=== PATIENT | female | born 1945 | race Two or more races ===

== ENCOUNTER 2024-05-04 17:45 | Emergency (ER) | payer MEDICARE, SELFPAY ==
[2024-05-04 18:14] VITALS: BP 128/66; PULSE 76; RESP 18; TEMP 36.6; O2SAT 99; BMI 24.2
--- NOTE | 2024-05-04 18:36 | EKG_ITS ---
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
--- NOTE | 2024-05-04 18:44 | XR_ITS ---
Examination: PA chest single view Technique: Upright PA chest single view Exam date and time: 70,025 1847 hrs. Comparison August 21, 2022 Indications: Onset chest pain today. Findings: Obscuration of detail right and left cardiac contour is suspicious for pneumonia in the right middle lobe and lingular segment left upper lobe Normal heart size No pulmonary edema Impression: Recommend lateral chest follow-up to confirm pneumonia in the right middle lobe and lingular segment left upper lobe
--- NOTE | 2024-05-04 18:45 | EDRME_ITS ---
Rapid Medical Screening Exam [facility] Arrival date/time: 05/04/24 17:45 79F with history of afib presents to ED with 2 days of R shoulder, chest, and upper ab/lower rib pain. Patient denies fall/trauma, SOB, URI symptoms, and dizziness/weakness. Chief Complaint: Chest Pain Vital signs: Vital Signs Temperature 98 F 05/04/24 18:14 Pulse Rate 76 05/04/24 18:14 Respiratory Rate 18 05/04/24 18:14 Blood Pressure 128/66 05/04/24 18:14 Pulse Oximetry (%) 99 05/04/24 18:14 Oxygen Delivery Method Room Air 05/04/24 18:14
[2024-05-04 19:24] LABS: Basophils # (Auto) 0.1 Thou/mm3 (0.0-0.2); Basophils % (Auto) 1 % (0-2.5); Eosinophils # (Auto) 0.1 Thou/mm3 (0.0-0.5); Eosinophils % (Auto) 1 % (0-10); Hematocrit 42.6 % (36.0-46.0); Hemoglobin 14.5 g/dL (12.0-16.0); Immature Granulocytes % (Auto) 0 % (0-0); Immature Granulocytes Auto 0.02 Thou/mm3 (0.00-0.00); Lymphocytes # (Auto) 2.5 Thou/mm3 (1.0-4.8); Lymphocytes % (Auto) 26 % (10-50); Mean Corpuscular Hemoglobin 28.7 pg (25.0-35.0); Mean Corpuscular Volume 84 fL (80-100); Monocytes # (Auto) 0.4 Thou/mm3 (0.0-0.8); Monocytes % (Auto) 4 % (0-12); Neutrophils # (Auto) 6.4 Thou/mm3 (1.8-7.7); Neutrophils % (Auto) 68 % (37-80); Nucleated Red Blood Cell % 0 /100 WBC (0); Platelet Count 255 Thou/mm3 (140-440); RDW Standard Deviation 41.9 fL (36.4-46.3); Red Blood Count 5.05 Miln/mm3 (4.00-5.20); White Blood Count 9.4 Thou/mm3 (3.6-11.0)
[2024-05-04 19:41] LABS: Alanine Aminotransferase 15 U/L (10-49); Albumin/Globulin Ratio 1.9 (1.2-2.2); Alkaline Phosphatase 86 U/L (46-116); Anion Gap 9 (7-16); Aspartate Amino Transferase 19 U/L (0-34); BUN/Creatinine Ratio 16 Ratio (12-20); Bilirubin,Total 0.5 mg/dL (0.3-1.2); Blood Urea Nitrogen 13 mg/dL (9-23); Calcium 9.9 mg/dL (8.3-10.6); Calcium (Corrected) 9.9 mg/dL (8.5-10.1); Carbon Dioxide 27.3 mMol/L (20.0-31.0); Chloride 106 mMol/L (98-107); Creatinine (Component) 0.8 mg/dL (0.6-1.3); Estimated Creatinine Clearance 55.1 mL/min (>60); Globulin 2.6 gm/dL (2.3-3.5); Glucose 95 mg/dL (74-106); Lipase 34 U/L (12-53); Magnesium 2.1 mg/dL (1.6-2.6); Osmolality,Calculated 283 (275-295); Potassium 4.3 mMol/L (3.4-5.1); Sodium 142 mMol/L (136-145); Total Protein 7.6 gm/dL (5.7-8.2); Troponin I < 0.020 ng/mL (0.0-0.045); eGFR > 60 See Note
--- NOTE | 2024-05-04 20:02 | PD.EDADULT ---
ED General RME/HPI General Chief complaint: Chest Pain Stated complaint: CHEST PAIN Time Seen by Provider: 05/04/24 20:01 Arrival date/time: 05/04/24 17:45 RME / HPI RME / HPI narrative: Patient is a 79 years old female with PMH of Afib presented to the ED complaining of widespread chest and upper and lower rib pain since yesterday. She reports pain started yesterday morning and was constant since then. She denies any precipitating or alleviating factors. Pain does not get worse with deep breathing or chest palpation. She reports pain is mild and is dull in nature and mostly located in her ribs. Patient denies fall/trauma, SOB, URI symptoms, fever, chills, and dizziness/weakness. Earlier today patient had EKG done at different clinic and it was negative. Related Data Previous Rx's ?Medication ?Instructions ?Recorded levofloxacin 750 mg tablet 750 mg PO QDAY PNA 4 days #4 tabs 05/04/24 Allergies Allergy/AdvReac Type Severity Reaction Status Date / Time Penicillins Allergy Severe Rash Verified 08/21/22 11:02 clindamycin Allergy Unknown Verified 08/21/22 11:02 Review of Systems Review of Systems Systems Reviewed: All systems reviewed, normal except as documented ED Exam Narrative Physical exam: Gen: Well-developed and well-nourished female. HEENT: NCAT, PERRLA, EOMI, MMM, anicteric conjunctivae. CVS: normal S1 and S2. RRR. No M/R/G. Resp: CTA B/L. No rhonchi, rales, crackles or wheezing. Abd: soft, non-tender, non-distended. BS+ in all 4 quadrants. MSK: Good ROM in BUE & BLE. No edema or rash. Neuro: CN II-XII grossly intact. Strength 5/5 in BUE & BLE. Alert and oriented x3. Psych: appropriate mood and affect. Course Quality Measures none Orders Category Date Time Status EKG (ED ONLY) *Do not use* NOW Care 05/04/24 18:36 Completed CXRP [XR chest 1V portable] Stat Exams 05/04/24 20:03 Completed EKG (ED Only) Stat Exams 05/04/24 18:36 Draft XR chest 1V portable Stat Exams 05/04/24 18:44 Completed CBC Stat Lab 05/04/24 19:09 Completed Comprehensive Metabolic Panel Stat Lab 05/04/24 19:09 Completed Lipase Stat Lab 05/04/24 19:09 Completed Magnesium Stat Lab 05/04/24 19:09 Completed Troponin I Stat Lab 05/04/24 19:09 Completed Ibuprofen Tab [Motrin Tab] Med 05/04/24 20:40 Discontinued 400 mg PO X1 ONE Levofloxacin [Levaquin] Med 05/04/24 21:15 Discontinued 750 mg PO X1 ONE Vital Signs Vital signs: Vital Signs Temperature 98 F 05/04/24 18:14 Pulse Rate 76 05/04/24 18:14 Respiratory Rate 18 05/04/24 18:14 Blood Pressure 128/66 05/04/24 18:14 Pulse Oximetry (%) 99 05/04/24 18:14 Oxygen Delivery Method Room Air 05/04/24 18:14 Procedures -ED EKG Interpretation Sinus rhythm with IRBBB: Date of EK05/04/24 Time of EK:45 Rate: 70 Interpretation: Reviewed by me EKG Impression: Normal sinus rhythm and Bundle branch block MDM Patient data External records reviewed:: [facility] previous records Clinical information provided by:: patient and family Social determinants that could affect healthcare access:: none Patient has the following chronic illnesses:: Afib How is presenting disease/condition affected by chronic disease/condition?: uneffected by Evaluation data The following diagnostics were reviewed and interpreted by me:: lab results, radiology exam(s) and EKG tracing(s) Lab and/or radiology exams considered but not ordered:: CTA Interpretation Summary: Rt middle lobe PNA Medications Medications considered but not ordered:: Aspirin, statin Medication administrations:: Medication Administration History Discontinued Medications Ibuprofen (Ibuprofen Tab 400 Mg Tablet) 400 mg PO X1 ONE Stop: 05/04/24 20:41 Levofloxacin (Levofloxacin 250 Mg Tablet) 750 mg PO X1 ONE Stop: 05/04/24 21:16 Ibuprofen, Levofloxacin 750 mg Consultations Consultation(s) initiated? (list below): No Diagnosis Differential Diagnosis ED Complaint MDM: ACS, CAP, musculoskeletal pain Most likely diagnosis given after review of the tests above:: CAP Admission Indicated Admission indicated?: not indicated Explain why admission is indicated or not indicated:: Patient is clinically and hemodynamically stable. Labs are unremarkable. X-ray showed pneumonia right middle lobe. Patient is not septic. Does not meet criteria for admission per CURB-65. Admission Request Was there a request for admission?: No Disposition Plan Disposition Plan: Discharge Discharge Attestation Discharge Attestation: The patient and all family members were given an opportunity to ask questions and understood the discharge instructions. Discharge instructions specifically effects, indications for sooner follow up or return to the emergency department, and the expected course of current diagnosis. Patient condition: Stable Medical Decision Making MDM Narrative MDM Narrative: Patient is clinically and hemodynamically asymptomatic, labs did not show white cell count elevation. Patient can be treated outpatient with antibiotic orally and follow-up with PCP outpatient. Differential Diagnosis Differential Diagnosis: ACS, CAP, musculoskeletal pain Lab Data 05/04/24 19:09 05/04/24 19:09 Labs: Lab Results 05/04/24 Range/Units 19:09 WBC 9.4 (3.6-11.0) Thou/mm3 RBC 5.05 (4.00-5.20) Miln/mm3 Hgb 14.5 (12.0-16.0) g/dL Hct 42.6 (36.0-46.0) % MCV 84 (80-100) fL MCH 28.7 (25.0-35.0) pg MCHC 34.0 (31.0-37.0) g/dl RDW Std Deviation 41.9 (36.4-46.3) fL Plt Count 255 (140-440) Thou/mm3 Neut % (Auto) 68 (37-80) % Lymph % (Auto) 26 (10-50) % Wise % (Auto) 4 (0-12) % Eos % (Auto) 1 (0-10) % Baso % (Auto) 1 (0-2.5) % Neut # (Auto) 6.4 (1.8-7.7) Thou/mm3 Lymph # (Auto) 2.5 (1.0-4.8) Thou/mm3 Wise # (Auto) 0.4 (0.0-0.8) Thou/mm3 Eos # (Auto) 0.1 (0.0-0.5) Thou/mm3 Baso # (Auto) 0.1 (0.0-0.2) Thou/mm3 Immature Gran # (Auto) 0.02 H (0.00-0.00) Thou/mm3 Absolute Nucleated RBC 0.00 (0.00-0.00) Thou/mm3 Immature Gran % 0 (0-0) % Nucleated RBC % 0 (0) /100 WBC Sodium 142 (136-145) mMol/L Potassium 4.3 (3.4-5.1) mMol/L Chloride 106 (98-107) mMol/L Carbon Dioxide 27.3 (20.0-31.0) mMol/L Anion Gap 9 (7-16) BUN 13 (9-23) mg/dL Creatinine 0.8 (0.6-1.3) mg/dL Estim Creat Clear Calc 55.1 L (>60) mL/min eGFR > 60 (60 - ) See Note BUN/Creatinine Ratio 16 (12-20) Ratio Glucose 95 (74-106) mg/dL Calculated Osmolality 283 (275-295) Calcium 9.9 (8.3-10.6) mg/dL Corrected Calcium 9.9 (8.5-10.1) mg/dL Magnesium 2.1 (1.6-2.6) mg/dL Total Bilirubin 0.5 (0.3-1.2) mg/dL AST 19 (0-34) U/L ALT 15 (10-49) U/L Alkaline Phosphatase 86 (46-116) U/L Troponin I < 0.020 (0.0-0.045) ng/mL Total Protein 7.6 (5.7-8.2) gm/dL Albumin 5.0 H (3.4-4.8) gm/dL Globulin 2.6 (2.3-3.5) gm/dL Albumin/Globulin Ratio 1.9 (1.2-2.2) Lipase 34 (12-53) U/L Discharge Plan Plan Patient Disposition: HOME (Self Care) Patient condition on transfer: Stable Prescriptions/Referrals Prescriptions/Med Rec: New levofloxacin 750 mg tablet 750 mg PO QDAY 4 Days Qty: 4 0RF Referrals: Grzegorz Calle MD [Primary Care Provider] - In 1 week Problem List Clinical Impression: CAP (community acquired pneumonia) Patient/Caregiver Discharge Instructions Education Materials: ED Pneumonia (Adult) Additional Instructions: Recommendations after ER visit: -you were found to have pneumonia, start taking Levofloxacin 750 mg daily for 4 more day. -Follow up with PCP within 1 week. -return to the ED if symptoms recur or worsen. Print Language: Omani Stand Alone Forms: [employer] Award Info., Patient Portal Info Letter
--- NOTE | 2024-05-04 20:03 | XR_ITS ---
Examination: Lateral chest single view Technique: Lateral chest single view Exam date and time: May 14, 2024 at 1851 hrs. Indications: Difficulty breathing this week. Findings: Pneumonia in the right middle lobe No pulmonary edema Impression: Pneumonia in the right middle lobe
[2024-05-04] MEDS: LEVOFLOXACIN 250 MG TABLET 750 MG PO (21:56)
== END 2024-05-04 21:40 | disposition home or self-care (01) ==
PROVIDERS: Physician Assistant; Emergency Provider Emergency Medicine; PCP Internal Medicine
DX: J18.9 Pneumonia, unspecified organism (principal); I48.91 Unspecified atrial fibrillation; Z88.0 Allergy status to penicillin; Z88.1 Allergy status to other antibiotic agents
CPT/HCPCS: 36415; 71045; 80053; 83690; 83735; 84484; 85025; 93005; 99283; A9270